=== PATIENT | male | born 1945 | race Caucasian/White ===

== ENCOUNTER 2017-10-10 14:07 | Observation (INO) ==
[2017-10-10] MEDS ORDERED: SODIUM CHLORIDE 0.9% 1,000 ML IV STA (14:58)
[2017-10-10 15:07] LABS: Basophils # 0.1 10*3/uL (0.0-0.2); Basophils % 0.6 % (0.0-0.8); Eosinophils # 0.4 10*3/uL (0.0-0.87); Eosinophils % 4.8 % (0.00-10.9); Hematocrit 41.2 VOL% (42.0-52.0); Immature Granulocytes % 0.4 %; Immature Granulocytes Absolute 0.03 #; Lymphocytes # 0.7 10*3/uL (1.4-4.0); Lymphocytes % 9.1 % (21.2-54.2); Mean Corpuscular Hemoglobin 30 PG (27-34); Mean Corpuscular Volume 87.1 FL (87-102); Mean Platelet Volume 11.1 FL (9.6-12.0); Monocytes # 0.7 10*3/uL (0.11-0.8); Monocytes % 8.2 % (1.7-12.7); Neutrophils # 6.2 10*3/uL (1.4-7.4); Neutrophils % 76.9 % (38.7-73.9); Platelet Count 88 T/CUMM (130-400); Red Blood Count 4.73 MC/CUMM (3.8-5.5); Red Cell Distribution Width 13.1 % (9.3-17.3); White Blood Count 8.1 T/CUMM (4-12)
[2017-10-10 15:20] LABS: Alanine Aminotransferase 59 U/L (16-61); Albumin 3.7 G/DL (3.4-5.0); Alkaline Phosphatase 92 U/L (45-117); Aspartate Amino Transferase 44 U/L (0-37); Blood Urea Nitrogen 20 MG/DL (7-18); Calcium 8.3 MG/DL (8.5-10.1); Glucose 160 MG/DL (74-106); Osmolality,Calculated 282.5 MOS/KG (273-304); Potassium 3.8 MMOL/L (3.5-5.1); Sodium 139 MMOL/L (136-145); Total Protein 7.5 G/DL (6.4-8.3)
[2017-10-10 15:39] LABS: PT Patient Result 59.6 SECS
[2017-10-10 15:40] LABS: Apearance,Urine CLEAR (Clear); Bacteria,Urine Occasional /HPF (Few); Bilirubin,Urine Negative (Negative); Blood, Urine Negative (Negative); Glucose,Urine (UA) Negative (Negative); Hyaline Casts,Urine 5 /LPF (0-3); Ketones,Urine Negative (Negative); Mucus,Urine Occasional /LPF (Occasional); Nitrite,Urine Negative (Negative); Protein,Urine Negative; RBC,Urine <1 /HPF (0-4); Urine Color Yellow (Yellow); Urine Specific Gravity 1.009 (1.001-1.035); WBC,Urine <1 /HPF (0-6)
[2017-10-10 15:52] LABS: Barbiturates Screen,Urine Negative (Negative); Benzodiazepines Screen,Urine Negative (Negative); Cannabinoid Screen,Urine Negative (Negative); Opiate Screen,Urine Negative (Negative); Phencyclidine Screen,Urine Negative (Negative)
[2017-10-10 17:29] LABS: Band Neutrophils 3 % (0-10); Eosinophils 2 % (0-10); Lymphocytes 7 % (20-55); Segmented Neutrophils 84 % (50-85)
[2017-10-10 17:31] LABS: Platelet Estimate Decreased; Total Cells Counted 100
[2017-10-10] MEDS ORDERED: ACETAMINOPHEN 325 MG TABLET PO PRN (19:06)
[2017-10-10] MEDS ORDERED: ONDANSETRON 4 MG/2 ML VIAL IV PRN (19:06)
[2017-10-10] MEDS ORDERED: ALBUTEROL 2.5 MG/3 ML NEB RESP TX PRN (19:30)
[2017-10-11 02:46] LABS: Basophils % 0.5 % (0.0-0.8); Eosinophils # 0.5 10*3/uL (0.0-0.87); Hematocrit 36.3 VOL% (42.0-52.0); Hemoglobin 12.7 GM/DL (14.0-18.0); Immature Granulocytes % 0.3 %; Immature Granulocytes Absolute 0.02 #; Lymphocytes # 1.1 10*3/uL (1.4-4.0); Lymphocytes % 16.4 % (21.2-54.2); Mean Corpuscular Hemoglobin 30 PG (27-34); Mean Corpuscular Volume 85.8 FL (87-102); Mean Platelet Volume 10.8 FL (9.6-12.0); Monocytes # 0.9 10*3/uL (0.11-0.8); Monocytes % 13.4 % (1.7-12.7); Neutrophils # 4.1 10*3/uL (1.4-7.4); Neutrophils % 61.4 % (38.7-73.9); Platelet Count 80 T/CUMM (130-400); Red Blood Count 4.23 MC/CUMM (3.8-5.5); Red Cell Distribution Width 13.5 % (9.3-17.3); White Blood Count 6.6 T/CUMM (4-12)
[2017-10-11 03:00] LABS: INR 1.8
[2017-10-11 03:08] LABS: Calcium 7.8 MG/DL (8.5-10.1); Osmolality,Calculated 282.4 MOS/KG (273-304); Potassium 3.4 MMOL/L (3.5-5.1); Risk Ratio 3.67; VLDL CHOLESTEROL 31.6 MG/DL
[2017-10-11 03:18] LABS: Free T4 (Free Thyroxine) 0.87 NG/DL (0.76-1.46); Thyroid Stimulating Hormone 2.01 uIU/ml (0.358-3.74)
[2017-10-11 07:59] LABS: INR 1.6; PT Patient Result 16.9 SECS
[2017-10-11] MEDS: PANTOPRAZOLE 40 MG TABLET PO SCH (09:57)
[2017-10-11] MEDS: ASPIRIN CHEW 81 MG TABLET PO SCH (09:57)
[2017-10-11] MEDS ORDERED: WARFARIN 10 MG TABLET PO ONE (10:56)
[2017-10-11] MEDS: CARVEDILOL 25 MG TABLET PO SCH ×2 (16:32→16:54)
[2017-10-11] MEDS: LISINOPRIL 20 MG TABLET PO SCH (16:32)
[2017-10-11 21:47] LABS: Apearance,Urine CLEAR (Clear); Bilirubin,Urine Negative (Negative); Blood, Urine Negative (Negative); Glucose,Urine (UA) Negative (Negative); Ketones,Urine Negative (Negative); Nitrite,Urine Negative (Negative); Protein,Urine Negative; RBC,Urine <1 /HPF (0-4); Urine Color Yellow (Yellow); Urine Specific Gravity 1.015 (1.001-1.035); WBC,Urine <1 /HPF (0-6)
[2017-10-12 04:49] LABS: INR 1.4; PT Patient Result 15.1 SECS
[2017-10-12 05:07] LABS: Calcium 8.1 MG/DL (8.5-10.1); Osmolality,Calculated 279.5 MOS/KG (273-304); Potassium 3.5 MMOL/L (3.5-5.1)
[2017-10-12 08:13] VITALS: BP 118/65
[2017-10-12] MEDS: ASPIRIN CHEW 81 MG TABLET PO SCH (08:42)
[2017-10-12] MEDS: LISINOPRIL 20 MG TABLET PO SCH (08:42)
[2017-10-12] MEDS: PANTOPRAZOLE 40 MG TABLET PO SCH (08:42)
[2017-10-12] MEDS: CARVEDILOL 25 MG TABLET PO SCH (08:42)
[2017-10-12] MEDS ORDERED: risperiDONE 1 MG TABLET PO SCH (10:12)
[2017-10-12] MEDS ORDERED: MIRTAZAPINE 30 MG TABLET PO SCH (10:12)
[2017-10-12] MEDS ORDERED: WARFARIN 7.5 MG TABLET PO SCH (18:00)
== END 2017-10-12 13:00 | disposition home or self-care (01) ==
LOC: EDUNIT# → EDBD → N.ED 14:07 → N.EDINP 14:07 → N.TELES 20:05
PROVIDERS: ADMIT Internal Medicine; ATTEND Internal Medicine

== ENCOUNTER 2020-02-08 13:01 | Inpatient (IN) ==
[2020-02-08] MEDS ORDERED: SODIUM CHLORIDE 0.9% 1,000 ML IV STA (13:20)
[2020-02-08 14:12] LABS: Basophils % 0.3 % (0.0-0.8); Eosinophils # 0.1 10*3/uL (0.0-0.87); Eosinophils % 1.2 % (0.00-10.9); Hematocrit 38.6 VOL% (42.0-52.0); Hemoglobin 12.9 GM/DL (14.0-18.0); Immature Granulocytes % 1.1 %; Immature Granulocytes Absolute 0.08 #; Lymphocytes # 0.6 10*3/uL (1.4-4.0); Lymphocytes % 7.7 % (21.2-54.2); Mean Corpuscular HGB Conc 33.4 GM/DL (32-36); Mean Corpuscular Volume 84.1 FL (87-102); Mean Platelet Volume 10.5 FL (9.6-12.0); Neutrophils % 83.7 % (38.7-73.9); Platelet Count 170 T/CUMM (130-400); Red Blood Count 4.59 MC/CUMM (3.8-5.5); Red Cell Distribution Width 13.4 % (9.3-17.3); White Blood Count 7.5 T/CUMM (4-12)
[2020-02-08 14:17] LABS: Albumin 2.5 G/DL (3.4-5.0); Bilirubin,Total 1.4 MG/DL (0.2-1.0); Calcium 8.3 MG/DL (8.5-10.1); Ferritin 1050.9 ng/ml (26-388); Osmolality,Calculated 277.8 MOS/KG (273-304); Total Protein 7.4 G/DL (6.4-8.3)
[2020-02-08 14:34] LABS: PT Patient Result 92.2 SECS (9.8-11.9); Partial Thromboplastin Time 59.9 SECS (23.9-33.8)
[2020-02-08 14:35] LABS: INR 9.7
[2020-02-08 15:26] LABS: Apearance,Urine CLEAR (Clear); Bilirubin,Urine Negative (Negative); Blood, Urine Small mg/dL (Negative); Glucose,Urine (UA) Negative (Negative); Hyaline Casts,Urine 9 /LPF (0-3); Ketones,Urine Negative (Negative); Mucus,Urine Occasional /LPF (Occasional); Nitrite,Urine Negative (Negative); Protein,Urine Negative; RBC,Urine <1 /HPF (0-4); Urine Color Yellow (Yellow); Urine Specific Gravity 1.009 (1.001-1.035)
[2020-02-08] MEDS ORDERED: LACTULOSE 20 GM/30 ML UDCUP PO PRN (15:34)
[2020-02-08] MEDS ORDERED: guaiFENesin/DM ER 600-30 MG TABLET PO PRN (15:34)
[2020-02-08] MEDS ORDERED: GLUCAGON 1 MG VIAL IM PRN (15:34)
[2020-02-08] MEDS ORDERED: NICOTINE 21 MG/24 HR PATCH TRANSDERM PRN (15:34)
[2020-02-08] MEDS ORDERED: ALBUTEROL 2.5 MG/3 ML NEB RESP TX PRN (15:34)
[2020-02-08] MEDS ORDERED: ONDANSETRON 4 MG/2 ML VIAL IV PRN (15:34)
[2020-02-08] MEDS ORDERED: DEXTROSE 50% 25 GM/50 ML VIAL IV PRN (15:34)
[2020-02-08] MEDS ORDERED: PIPERACILLIN/TAZOBACTAM 3,375 MG in SODIUM CHLORIDE 0.9% 100 ML IV SCH (16:00)
[2020-02-08] MEDS ORDERED: PHYTONADIONE 5 MG/5 ML ORAL.SYR PO ONE (16:04)
[2020-02-08] MEDS ORDERED: cefTRIAXone 1,000 MG VIAL IM STA (16:18)
[2020-02-08] MEDS ORDERED: AZITHROMYCIN INJ 500 MG in SODIUM CHLORIDE 0.9% 250 ML IV STA (16:18)
[2020-02-08] MEDS: carvediloL 25 MG TABLET PO SCH (18:36)
[2020-02-08] MEDS: INSULIN REGULAR 100 UNIT/ML SUBCUT SCH ×2 (18:36→20:56)
[2020-02-09 06:16] LABS: Basophils % 0.2 % (0.0-0.8); Eosinophils % 0.3 % (0.00-10.9); Hematocrit 36.1 VOL% (42.0-52.0); Immature Granulocytes Absolute 0.09 #; Lymphocytes # 0.7 10*3/uL (1.4-4.0); Lymphocytes % 7.2 % (21.2-54.2); Mean Corpuscular HGB Conc 33.2 GM/DL (32-36); Mean Corpuscular Volume 84.7 FL (87-102); Mean Platelet Volume 10.4 FL (9.6-12.0); Monocytes % 6.5 % (1.7-12.7); Neutrophils % 84.8 % (38.7-73.9); Platelet Count 169 T/CUMM (130-400); Red Blood Count 4.26 MC/CUMM (3.8-5.5); Red Cell Distribution Width 13.4 % (9.3-17.3)
[2020-02-09 06:21] LABS: INR 2.6; PT Patient Result 26.2 SECS (9.8-11.9)
[2020-02-09 06:35] LABS: Albumin 2.3 G/DL (3.4-5.0); Bilirubin,Total 2.4 MG/DL (0.2-1.0); Calcium 8.1 MG/DL (8.5-10.1); Osmolality,Calculated 277.7 MOS/KG (273-304); Total Protein 6.7 G/DL (6.4-8.3)
[2020-02-09] MEDS: INSULIN REGULAR 100 UNIT/ML SUBCUT SCH ×4 (07:31→20:42)
[2020-02-09] MEDS: cefTRIAXone 1,000 MG in SYRINGE 1 EACH IV SCH (09:57)
[2020-02-09] MEDS: carvediloL 25 MG TABLET PO SCH ×2 (09:57→17:09)
[2020-02-09] MEDS: AZITHROMYCIN 250 MG TABLET PO SCH (09:58)
[2020-02-09] MEDS: POTASSIUM CHLORIDE 20 MEQ PACK PO SCH (16:30)
[2020-02-09] MEDS: FUROSEMIDE 40 MG TABLET PO SCH (16:30)
[2020-02-09] MEDS: SPIRONOLACTONE 25 MG TABLET PO SCH (16:30)
[2020-02-09] MEDS: ASPIRIN CHEW 81 MG TABLET PO SCH (16:30)
[2020-02-09] MEDS: lisinopriL 20 MG TABLET PO SCH ×2 (16:30→20:45)
[2020-02-09] MEDS: ATORVASTATIN 40 MG TABLET PO SCH (16:30)
[2020-02-09] MEDS ORDERED: AZITHROMYCIN INJ 250 MG in SODIUM CHLORIDE 0.9% 250 ML IV SCH (17:00)
[2020-02-09] MEDS: MIRTAZAPINE 30 MG TABLET PO SCH (20:42)
[2020-02-09] MEDS: risperiDONE 0.25 MG TABLET PO SCH (20:42)
[2020-02-09] MEDS: SERTRALINE 100 MG TABLET PO SCH (20:42)
[2020-02-09] MEDS ORDERED: WARFARIN 7.5 MG TABLET PO SCH (21:00)
[2020-02-10 05:39] LABS: Basophils % 0.2 % (0.0-0.8); Eosinophils % 0.4 % (0.00-10.9); Hemoglobin 12.2 GM/DL (14.0-18.0); Lymphocytes # 0.6 10*3/uL (1.4-4.0); Lymphocytes % 6.5 % (21.2-54.2); Mean Corpuscular Volume 85.8 FL (87-102); Mean Platelet Volume 10.2 FL (9.6-12.0); Monocytes % 6.6 % (1.7-12.7); Neutrophils % 85.3 % (38.7-73.9); Platelet Count 165 T/CUMM (130-400); Red Blood Count 4.31 MC/CUMM (3.8-5.5); Red Cell Distribution Width 13.3 % (9.3-17.3); White Blood Count 9.9 T/CUMM (4-12)
[2020-02-10 05:43] LABS: INR 1.6; PT Patient Result 16.7 SECS (9.8-11.9)
[2020-02-10 05:52] LABS: Calcium 8.6 MG/DL (8.5-10.1); Osmolality,Calculated 277.8 MOS/KG (273-304)
[2020-02-10] MEDS: INSULIN REGULAR 100 UNIT/ML SUBCUT SCH ×4 (08:29→21:01)
[2020-02-10 08:51] LABS: ABG Base Excess -2.3 MMOL/L (-2.5-2.5); ABG HCO3 22.4 MMOL/L (20-26); ABG Oxygen Saturation 91.1 % (95-100); ABG PCO2 31.7 MM HG (35-48); ABG PH 7.432 (7.35-7.45); ABG PO2 62.5 MM HG (80-95); ABG TCO2 18.6 MMOL/L (23-27)
[2020-02-10 08:52] LABS: Allen Test Positive; Pt O2 Delivery Device Other
[2020-02-10] MEDS: lisinopriL 20 MG TABLET PO SCH ×2 (08:56→20:58)
[2020-02-10] MEDS: FUROSEMIDE 40 MG TABLET PO SCH (08:57)
[2020-02-10] MEDS: AZITHROMYCIN 250 MG TABLET PO SCH (08:57)
[2020-02-10] MEDS: SPIRONOLACTONE 25 MG TABLET PO SCH (08:57)
[2020-02-10] MEDS: CALCIUM (CARBONATE) 600 MG TABLET PO SCH (08:58)
[2020-02-10] MEDS: POTASSIUM CHLORIDE 20 MEQ PACK PO SCH (08:58)
[2020-02-10] MEDS: ASPIRIN CHEW 81 MG TABLET PO SCH (08:58)
[2020-02-10] MEDS: ATORVASTATIN 40 MG TABLET PO SCH (08:58)
[2020-02-10] MEDS: carvediloL 25 MG TABLET PO SCH ×2 (08:58→18:00)
[2020-02-10] MEDS: cefTRIAXone 1,000 MG in SYRINGE 1 EACH IV SCH (09:05)
[2020-02-10 09:29] LABS: Ferritin 1131.2 ng/ml (26-388)
[2020-02-10] MEDS: HEPARIN DRIP 25,000 UNITS/500 ML PREMIX IV SCH (12:09)
[2020-02-10] MEDS: risperiDONE 0.25 MG TABLET PO SCH (20:58)
[2020-02-10] MEDS: SERTRALINE 100 MG TABLET PO SCH (20:58)
[2020-02-10] MEDS: MIRTAZAPINE 30 MG TABLET PO SCH (20:58)
[2020-02-10] MEDS ORDERED: WARFARIN 10 MG TABLET PO SCH (21:00)
[2020-02-11 04:23] LABS: Basophils % 0.2 % (0.0-0.8); Eosinophils # 0.1 10*3/uL (0.0-0.87); Eosinophils % 0.7 % (0.00-10.9); Hematocrit 34.2 VOL% (42.0-52.0); Hemoglobin 11.4 GM/DL (14.0-18.0); Immature Granulocytes % 1.4 %; Immature Granulocytes Absolute 0.15 #; Lymphocytes # 0.6 10*3/uL (1.4-4.0); Lymphocytes % 5.8 % (21.2-54.2); Mean Corpuscular HGB Conc 33.3 GM/DL (32-36); Mean Corpuscular Volume 84.4 FL (87-102); Monocytes % 6.8 % (1.7-12.7); Neutrophils % 85.1 % (38.7-73.9); Platelet Count 153 T/CUMM (130-400); Red Blood Count 4.05 MC/CUMM (3.8-5.5); Red Cell Distribution Width 13.4 % (9.3-17.3); White Blood Count 10.4 T/CUMM (4-12)
[2020-02-11 04:35] LABS: PT Patient Result 20.3 SECS (9.8-11.9)
[2020-02-11 04:55] LABS: Albumin 2.1 G/DL (3.4-5.0); Bilirubin,Total 2.7 MG/DL (0.2-1.0); Total Protein 6.6 G/DL (6.4-8.3)
[2020-02-11 04:57] LABS: Ferritin 1183.7 ng/ml (26-388)
[2020-02-11 05:09] LABS: ABG Base Excess -0.8 MMOL/L (-2.5-2.5); ABG HCO3 23.6 MMOL/L (20-26); ABG PCO2 32.3 MM HG (35-48); ABG PO2 57.6 MM HG (80-95); ABG TCO2 19.9 MMOL/L (23-27); Allen Test Positive; Pt O2 Delivery Device Other
[2020-02-11] MEDS: INSULIN REGULAR 100 UNIT/ML SUBCUT SCH ×4 (08:01→22:24)
[2020-02-11] MEDS: CALCIUM (CARBONATE) 600 MG TABLET PO SCH (08:42)
[2020-02-11] MEDS: AZITHROMYCIN 250 MG TABLET PO SCH (08:42)
[2020-02-11] MEDS: POTASSIUM CHLORIDE 20 MEQ PACK PO SCH (08:42)
[2020-02-11] MEDS: ATORVASTATIN 40 MG TABLET PO SCH (08:42)
[2020-02-11] MEDS: cefTRIAXone 1,000 MG in SYRINGE 1 EACH IV SCH (08:42)
[2020-02-11] MEDS: lisinopriL 20 MG TABLET PO SCH ×2 (08:42→21:24)
[2020-02-11] MEDS: SPIRONOLACTONE 25 MG TABLET PO SCH (08:42)
[2020-02-11] MEDS: ASPIRIN CHEW 81 MG TABLET PO SCH (08:42)
[2020-02-11] MEDS: carvediloL 25 MG TABLET PO SCH ×2 (08:42→17:16)
[2020-02-11] MEDS: FUROSEMIDE 40 MG TABLET PO SCH (08:42)
[2020-02-11] MEDS: HEPARIN DRIP 25,000 UNITS/500 ML PREMIX IV SCH (11:45)
[2020-02-11] MEDS: MIRTAZAPINE 30 MG TABLET PO SCH (21:24)
[2020-02-11] MEDS: SERTRALINE 100 MG TABLET PO SCH (21:25)
[2020-02-11] MEDS: risperiDONE 0.25 MG TABLET PO SCH (21:25)
[2020-02-12] MEDS: ACETAMINOPHEN/CODEINE 120-12 MG/5 ML 12.5 ML UDCUP PO PRN ×2 (02:00→23:30)
[2020-02-12] MEDS: HEPARIN DRIP 25,000 UNITS/500 ML PREMIX IV SCH ×3 (02:32→23:03)
[2020-02-12 05:05] LABS: ABG Base Excess -0.8 MMOL/L (-2.5-2.5); ABG HCO3 23.3 MMOL/L (20-26); ABG Oxygen Saturation 76.1 % (95-100); ABG PH 7.417 (7.35-7.45); ABG TCO2 20.6 MMOL/L (23-27); Allen Test Positive; Pt O2 Delivery Device Other
[2020-02-12 05:26] LABS: Basophils % 0.1 % (0.0-0.8); Eosinophils # 0.1 10*3/uL (0.0-0.87); Eosinophils % 1.2 % (0.00-10.9); Hematocrit 34.8 VOL% (42.0-52.0); Hemoglobin 11.3 GM/DL (14.0-18.0); Immature Granulocytes % 1.4 %; Immature Granulocytes Absolute 0.16 #; Lymphocytes # 0.7 10*3/uL (1.4-4.0); Lymphocytes % 6.1 % (21.2-54.2); Mean Corpuscular HGB Conc 32.5 GM/DL (32-36); Mean Corpuscular Volume 86.6 FL (87-102); Mean Platelet Volume 10.2 FL (9.6-12.0); Monocytes % 5.3 % (1.7-12.7); Neutrophils % 85.9 % (38.7-73.9); Platelet Count 179 T/CUMM (130-400); Red Blood Count 4.02 MC/CUMM (3.8-5.5); Red Cell Distribution Width 13.6 % (9.3-17.3); White Blood Count 11.2 T/CUMM (4-12)
[2020-02-12 05:55] LABS: Albumin 1.9 G/DL (3.4-5.0); Bilirubin,Total 1.6 MG/DL (0.2-1.0); Calcium 8.1 MG/DL (8.5-10.1); Osmolality,Calculated 279.8 MOS/KG (273-304); Total Protein 6.6 G/DL (6.4-8.3)
[2020-02-12 05:59] LABS: INR 2.2
[2020-02-12 06:00] LABS: PT Patient Result 22.4 SECS (9.8-11.9)
[2020-02-12] MEDS: INSULIN REGULAR 100 UNIT/ML SUBCUT SCH ×4 (08:38→20:55)
[2020-02-12] MEDS: cefTRIAXone 1,000 MG in SYRINGE 1 EACH IV SCH (09:51)
[2020-02-12] MEDS: CALCIUM (CARBONATE) 600 MG TABLET PO SCH (09:57)
[2020-02-12] MEDS: FUROSEMIDE 40 MG TABLET PO SCH (09:57)
[2020-02-12] MEDS: carvediloL 25 MG TABLET PO SCH ×2 (09:57→16:49)
[2020-02-12] MEDS: SPIRONOLACTONE 25 MG TABLET PO SCH (09:57)
[2020-02-12] MEDS: ATORVASTATIN 40 MG TABLET PO SCH (09:57)
[2020-02-12] MEDS: ASPIRIN CHEW 81 MG TABLET PO SCH (09:57)
[2020-02-12] MEDS: DEXAMETHASONE 4 MG/1 ML VIAL IV SCH (09:57)
[2020-02-12] MEDS: lisinopriL 20 MG TABLET PO SCH ×2 (09:58→20:32)
[2020-02-12] MEDS: AZITHROMYCIN 250 MG TABLET PO SCH (09:58)
[2020-02-12] MEDS: POTASSIUM CHLORIDE 20 MEQ PACK PO SCH (09:58)
[2020-02-12] MEDS: FUROSEMIDE 40 MG/4 ML VIAL IV SCH (12:58)
[2020-02-12] MEDS: PANTOPRAZOLE 40 MG VIAL IV SCH (14:42)
[2020-02-12] MEDS ORDERED: REMDESIVIR 200 MG in SODIUM CHLORIDE 0.9% 210 ML IV ONE (17:00)
[2020-02-12] MEDS: risperiDONE 0.25 MG TABLET PO SCH (20:32)
[2020-02-12] MEDS: SERTRALINE 100 MG TABLET PO SCH (20:32)
[2020-02-12] MEDS: MIRTAZAPINE 30 MG TABLET PO SCH (20:32)
[2020-02-13 05:08] LABS: ABG Base Excess -0.8 MMOL/L (-2.5-2.5); ABG Oxygen Saturation 77.9 % (95-100); ABG PCO2 35.3 MM HG (35-48); ABG PH 7.431 (7.35-7.45); ABG PO2 45.1 MM HG (80-95); Allen Test Positive; Pt O2 Delivery Device Other
[2020-02-13 05:19] LABS: Basophils % 0.2 % (0.0-0.8); Eosinophils % 0.2 % (0.00-10.9); Hematocrit 35.2 VOL% (42.0-52.0); Immature Granulocytes Absolute 0.22 #; Lymphocytes # 0.6 10*3/uL (1.4-4.0); Lymphocytes % 5.6 % (21.2-54.2); Mean Corpuscular HGB Conc 34.1 GM/DL (32-36); Mean Corpuscular Volume 82.8 FL (87-102); Mean Platelet Volume 10.4 FL (9.6-12.0); Monocytes % 5.5 % (1.7-12.7); Neutrophils % 86.5 % (38.7-73.9); Platelet Count 177 T/CUMM (130-400); Red Blood Count 4.25 MC/CUMM (3.8-5.5); Red Cell Distribution Width 13.6 % (9.3-17.3); White Blood Count 11.1 T/CUMM (4-12)
[2020-02-13 05:57] LABS: Albumin 1.8 G/DL (3.4-5.0); Bilirubin,Total 1.3 MG/DL (0.2-1.0); Calcium 8.2 MG/DL (8.5-10.1); Osmolality,Calculated 283.7 MOS/KG (273-304); Total Protein 6.7 G/DL (6.4-8.3)
[2020-02-13 07:06] LABS: INR 2.6
[2020-02-13 07:09] LABS: PT Patient Result 26.8 SECS (9.8-11.9)
[2020-02-13] MEDS: CALCIUM (CARBONATE) 600 MG TABLET PO SCH (08:25)
[2020-02-13] MEDS: lisinopriL 20 MG TABLET PO SCH (08:25)
[2020-02-13] MEDS: SPIRONOLACTONE 25 MG TABLET PO SCH (08:25)
[2020-02-13] MEDS: ATORVASTATIN 40 MG TABLET PO SCH (08:25)
[2020-02-13] MEDS: POTASSIUM CHLORIDE 20 MEQ PACK PO SCH (08:25)
[2020-02-13] MEDS: carvediloL 25 MG TABLET PO SCH ×2 (08:25→16:24)
[2020-02-13] MEDS: ASPIRIN CHEW 81 MG TABLET PO SCH (08:25)
[2020-02-13] MEDS: DEXAMETHASONE 4 MG/1 ML VIAL IV SCH (08:26)
[2020-02-13] MEDS: PANTOPRAZOLE 40 MG VIAL IV SCH (08:26)
[2020-02-13] MEDS: cefTRIAXone 1,000 MG in SYRINGE 1 EACH IV SCH (08:26)
[2020-02-13] MEDS: FUROSEMIDE 40 MG/4 ML VIAL IV SCH (08:26)
[2020-02-13] MEDS: INSULIN REGULAR 100 UNIT/ML SUBCUT SCH ×3 (09:19→17:59)
[2020-02-13] MEDS: POTASSIUM CHLORIDE 20 MEQ TABLET PO PRN ×2 (09:19→18:54)
[2020-02-13] MEDS: HEPARIN DRIP 25,000 UNITS/500 ML PREMIX IV SCH (11:45)
[2020-02-13] MEDS ORDERED: SUCCINYLCHOLINE 200 MG/10 ML VIAL ONE (13:10)
[2020-02-13] MEDS ORDERED: MIDAZOLAM 10 MG/2 ML VIAL ONE (13:10)
[2020-02-13] MEDS ORDERED: MIDAZOLAM 2 MG/2 ML VIAL IV ONE ×2 (13:20→13:22)
[2020-02-13] MEDS ORDERED: SUCCINYLCHOLINE 200 MG/10 ML VIAL IV ONE (13:24)
[2020-02-13] MEDS ORDERED: NOREPINEPHRINE 4 MG/4 ML VIAL IV ONE (14:15)
[2020-02-13] MEDS: NOREPINEPHRINE 8 MG in SODIUM CHLORIDE 0.9% 242 ML IV PRN ×2 (14:17→20:15)
[2020-02-13 14:21] LABS: ABG Base Excess -1.3 MMOL/L (-2.5-2.5); ABG HCO3 23.1 MMOL/L (20-26); ABG Oxygen Saturation 85.4 % (95-100); ABG PCO2 48.3 MM HG (35-48); ABG PH 7.327 (7.35-7.45); ABG PO2 60.5 MM HG (80-95); ABG TCO2 22.5 MMOL/L (23-27); Allen Test Positive; Pt O2 Delivery Device Ventilator
[2020-02-13] MEDS ORDERED: VECURONIUM 10 MG VIAL IV PRN (15:27)
[2020-02-13 16:22] LABS: ABG HCO3 22.6 MMOL/L (20-26); ABG Oxygen Saturation 92.2 % (95-100); ABG PCO2 54.5 MM HG (35-48); ABG PH 7.283 (7.35-7.45); ABG PO2 78.8 MM HG (80-95); ABG TCO2 22.9 MMOL/L (23-27); Allen Test Positive; Pt O2 Delivery Device Ventilator
[2020-02-13] MEDS: REMDESIVIR 100 MG in SODIUM CHLORIDE 0.9% 230 ML IV SCH (17:45)
[2020-02-13] MEDS: risperiDONE 0.25 MG TABLET PO SCH (21:38)
[2020-02-13] MEDS: SERTRALINE 100 MG TABLET PO SCH (21:38)
[2020-02-13] MEDS: MIRTAZAPINE 30 MG TABLET PO SCH (21:38)
[2020-02-14] MEDS: INSULIN REGULAR 100 UNIT/ML SUBCUT SCH ×4 (00:14→17:27)
[2020-02-14] MEDS: NOREPINEPHRINE 8 MG in SODIUM CHLORIDE 0.9% 242 ML IV PRN ×4 (01:35→20:26)
[2020-02-14] MEDS ORDERED: LACTATED RINGERS 1,000 ML IV ONE (03:09)
[2020-02-14 04:22] LABS: Basophils # 0.1 10*3/uL (0.0-0.2); Basophils % 0.4 % (0.0-0.8); Eosinophils % 0.1 % (0.00-10.9); Hematocrit 41.3 VOL% (42.0-52.0); Hemoglobin 12.9 GM/DL (14.0-18.0); Immature Granulocytes Absolute 1.58 #; Lymphocytes # 1.9 10*3/uL (1.4-4.0); Mean Corpuscular HGB Conc 31.2 GM/DL (32-36); Mean Corpuscular Volume 89.6 FL (87-102); Mean Platelet Volume 10.9 FL (9.6-12.0); Monocytes % 5.1 % (1.7-12.7); NRBC # 0.02 10*3/uL; Neutrophils % 83.4 % (38.7-73.9); Platelet Count 330 T/CUMM (130-400); Red Blood Count 4.61 MC/CUMM (3.8-5.5); Red Cell Distribution Width 14.6 % (9.3-17.3); White Blood Count 31.6 T/CUMM (4-12)
[2020-02-14 04:36] LABS: ABG Base Excess -4.1 MMOL/L (-2.5-2.5); ABG Oxygen Saturation 98.6 % (95-100); ABG PCO2 57.3 MM HG (35-48); ABG PO2 157.1 MM HG (80-95); ABG TCO2 25.8 MMOL/L (23-27); Allen Test Positive; Pt O2 Delivery Device Ventilator
[2020-02-14 05:00] LABS: Band Neutrophils 3 % (0-10); Burr Cells Slight; Lymphocytes 3 % (20-55); Ovalocytes Slight; Platelet Estimate Adequate; Segmented Neutrophils 91 % (50-85); Total Cells Counted 100
[2020-02-14 05:07] LABS: Albumin 1.9 G/DL (3.4-5.0); Calcium 7.8 MG/DL (8.5-10.1); Total Protein 6.6 G/DL (6.4-8.3)
[2020-02-14] MEDS ORDERED: SODIUM POLYSTYRENE SULFATE 15 GM/60 ML BOTTLE PO ONE (06:15)
[2020-02-14] MEDS: HEPARIN DRIP 25,000 UNITS/500 ML PREMIX IV SCH ×2 (06:42→11:49)
[2020-02-14] MEDS: ASPIRIN CHEW 81 MG TABLET PO SCH (08:09)
[2020-02-14] MEDS: CALCIUM (CARBONATE) 600 MG TABLET PO SCH (08:09)
[2020-02-14] MEDS: ATORVASTATIN 40 MG TABLET PO SCH (08:09)
[2020-02-14] MEDS: cefTRIAXone 1,000 MG in SYRINGE 1 EACH IV SCH (08:10)
[2020-02-14] MEDS: SPIRONOLACTONE 25 MG TABLET PO SCH (08:12)
[2020-02-14] MEDS: FUROSEMIDE 40 MG/4 ML VIAL IV SCH (08:20)
[2020-02-14] MEDS: DEXAMETHASONE 4 MG/1 ML VIAL IV SCH (08:23)
[2020-02-14] MEDS: PANTOPRAZOLE 40 MG VIAL IV SCH (08:26)
[2020-02-14 10:52] LABS: Amorphous Crystals,Urine Occasional /HPF (Few); Apearance,Urine CLOUDY (Clear); Bilirubin,Urine Negative (Negative); Blood, Urine Large mg/dL (Negative); Glucose,Urine (UA) Negative (Negative); Hyaline Casts,Urine 14 /LPF (0-3); Ketones,Urine Negative (Negative); Mucus,Urine Few /LPF (Occasional); Nitrite,Urine Negative (Negative); Protein,Urine Negative; RBC,Urine 210 /HPF (0-4); Sperm,Urine Occasional /HPF (Negative); Urine Color Yellow (Yellow); WBC,Urine 1 /HPF (0-6)
[2020-02-14] MEDS ORDERED: SODIUM CHLORIDE 0.9% 1,000 ML IV PRN (11:50)
[2020-02-14] MEDS: REMDESIVIR 100 MG in SODIUM CHLORIDE 0.9% 230 ML IV SCH (16:44)
[2020-02-14] MEDS: SERTRALINE 100 MG TABLET PO SCH (20:12)
[2020-02-14] MEDS: risperiDONE 0.25 MG TABLET PO SCH (20:12)
[2020-02-14] MEDS: MIRTAZAPINE 30 MG TABLET PO SCH (20:12)
[2020-02-15] MEDS: HEPARIN DRIP 25,000 UNITS/500 ML PREMIX IV SCH ×4 (00:42→18:31)
[2020-02-15] MEDS: INSULIN REGULAR 100 UNIT/ML SUBCUT SCH ×4 (02:45→18:05)
[2020-02-15 04:14] LABS: ABG Base Excess -0.4 MMOL/L (-2.5-2.5); ABG HCO3 25.6 MMOL/L (20-26); ABG Oxygen Saturation 96.1 % (95-100); ABG PCO2 47.5 MM HG (35-48); ABG PO2 89.1 MM HG (80-95); ABG TCO2 27.1 MMOL/L (23-27); Allen Test Positive; Pt O2 Delivery Device Ventilator
[2020-02-15 06:00] LABS: Basophils % 0.2 % (0.0-0.8); Eosinophils # 0.2 10*3/uL (0.0-0.87); Eosinophils % 1.2 % (0.00-10.9); Hematocrit 37.2 VOL% (42.0-52.0); Lymphocytes # 1.2 10*3/uL (1.4-4.0); Lymphocytes % 8.5 % (21.2-54.2); Mean Corpuscular HGB Conc 32.3 GM/DL (32-36); Mean Corpuscular Volume 88.4 FL (87-102); Mean Platelet Volume 10.2 FL (9.6-12.0); Monocytes % 7.2 % (1.7-12.7); Neutrophils % 80.9 % (38.7-73.9); Platelet Count 219 T/CUMM (130-400); Red Blood Count 4.21 MC/CUMM (3.8-5.5); Red Cell Distribution Width 14.7 % (9.3-17.3); White Blood Count 14.7 T/CUMM (4-12)
[2020-02-15 06:18] LABS: Albumin 1.7 G/DL (3.4-5.0); Bilirubin,Direct 0.97 MG/DL (0.0-0.20); Bilirubin,Indirect 0.8 MG/DL (0.0-1.0); Bilirubin,Total 1.8 MG/DL (0.2-1.0); Calcium 7.7 MG/DL (8.5-10.1); Osmolality,Calculated 296.3 MOS/KG (273-304); Total Protein 6.7 G/DL (6.4-8.3)
[2020-02-15] MEDS: NOREPINEPHRINE 8 MG in SODIUM CHLORIDE 0.9% 242 ML IV PRN (07:10)
[2020-02-15] MEDS: CALCIUM (CARBONATE) 600 MG TABLET PO SCH (08:10)
[2020-02-15] MEDS: ATORVASTATIN 40 MG TABLET PO SCH (08:10)
[2020-02-15] MEDS: ASPIRIN CHEW 81 MG TABLET PO SCH (08:10)
[2020-02-15] MEDS: DEXAMETHASONE 4 MG/1 ML VIAL IV SCH (08:22)
[2020-02-15] MEDS: PANTOPRAZOLE 40 MG VIAL IV SCH (09:17)
[2020-02-15] MEDS: cefTRIAXone 1,000 MG in SYRINGE 1 EACH IV SCH (09:17)
[2020-02-15] MEDS ORDERED: DIGOXIN 0.5 MG/2 ML AMP IV ONE ×2 (09:20→10:21)
[2020-02-15] MEDS: REMDESIVIR 100 MG in SODIUM CHLORIDE 0.9% 230 ML IV SCH (16:03)
[2020-02-15] MEDS: ACETAMINOPHEN 325 MG TABLET PO PRN (16:38)
[2020-02-15] MEDS: MIRTAZAPINE 30 MG TABLET PO SCH (21:00)
[2020-02-15] MEDS: SERTRALINE 100 MG TABLET PO SCH (21:00)
[2020-02-15] MEDS: risperiDONE 0.25 MG TABLET PO SCH (21:00)
[2020-02-15 21:59] VITALS: BP 116/71
[2020-02-16] MEDS: INSULIN REGULAR 100 UNIT/ML SUBCUT SCH ×4 (00:54→17:41)
[2020-02-16] MEDS: ACETAMINOPHEN 325 MG TABLET PO PRN ×4 (01:15→21:05)
[2020-02-16 03:05] LABS: ABG Base Excess 0.1 MMOL/L (-2.5-2.5); ABG HCO3 28.3 MMOL/L (20-26); ABG Oxygen Saturation 98.3 % (95-100); ABG PO2 131.9 MM HG (80-95); ABG TCO2 30.2 MMOL/L (23-27); Allen Test Positive; Pt O2 Delivery Device Ventilator
[2020-02-16 04:31] LABS: Basophils % 0.1 % (0.0-0.8); Eosinophils # 0.1 10*3/uL (0.0-0.87); Eosinophils % 0.4 % (0.00-10.9); Hemoglobin 12.4 GM/DL (14.0-18.0); Immature Granulocytes % 1.2 %; Immature Granulocytes Absolute 0.18 #; Lymphocytes # 0.9 10*3/uL (1.4-4.0); Lymphocytes % 5.7 % (21.2-54.2); Mean Corpuscular HGB Conc 30.2 GM/DL (32-36); Mean Corpuscular Volume 91.5 FL (87-102); Mean Platelet Volume 10.8 FL (9.6-12.0); Monocytes % 6.9 % (1.7-12.7); Neutrophils % 85.7 % (38.7-73.9); Platelet Count 178 T/CUMM (130-400); Red Blood Count 4.48 MC/CUMM (3.8-5.5); White Blood Count 15.6 T/CUMM (4-12)
[2020-02-16 04:39] LABS: INR 1.9; PT Patient Result 19.8 SECS (9.8-11.9)
[2020-02-16 04:54] LABS: Calcium 8.5 MG/DL (8.5-10.1); Osmolality,Calculated 301.1 MOS/KG (273-304)
[2020-02-16] MEDS: cefTRIAXone 1,000 MG in SYRINGE 1 EACH IV SCH (08:08)
[2020-02-16] MEDS: ATORVASTATIN 40 MG TABLET PO SCH (08:08)
[2020-02-16] MEDS: ASPIRIN CHEW 81 MG TABLET PO SCH (08:09)
[2020-02-16] MEDS: CALCIUM (CARBONATE) 600 MG TABLET PO SCH (08:09)
[2020-02-16] MEDS: DEXAMETHASONE 4 MG/1 ML VIAL IV SCH (08:13)
[2020-02-16] MEDS: PANTOPRAZOLE 40 MG VIAL IV SCH (08:20)
[2020-02-16] MEDS ORDERED: AMIODARONE INJ 150 MG in DEXTROSE 5% 100 ML IV ONE (11:10)
[2020-02-16] MEDS ORDERED: AMIODARONE INJ 450 MG in DEXTROSE 5% 241 ML IV SCH (11:30)
[2020-02-16] MEDS ORDERED: DIGOXIN 0.25 MG TABLET PO SCH (13:00)
[2020-02-16] MEDS: HEPARIN DRIP 25,000 UNITS/500 ML PREMIX IV SCH ×2 (13:07→15:12)
[2020-02-16] MEDS: METOPROLOL TARTRATE 50 MG TABLET PO SCH ×2 (15:05→20:04)
[2020-02-16] MEDS: REMDESIVIR 100 MG in SODIUM CHLORIDE 0.9% 230 ML IV SCH (17:20)
[2020-02-16] MEDS: PIPERACILLIN/TAZOBACTAM 3,375 MG in SODIUM CHLORIDE 0.9% 100 ML IV SCH (18:53)
[2020-02-16] MEDS: NOREPINEPHRINE 8 MG in SODIUM CHLORIDE 0.9% 242 ML IV PRN (20:05)
[2020-02-16] MEDS: MIRTAZAPINE 30 MG TABLET PO SCH (20:05)
[2020-02-16] MEDS: SERTRALINE 100 MG TABLET PO SCH (20:05)
[2020-02-16] MEDS: risperiDONE 0.25 MG TABLET PO SCH (20:05)
[2020-02-16] MEDS: AMIODARONE INJ 450 MG in DEXTROSE 5% 241 ML IV SCH (23:06)
[2020-02-17] MEDS: INSULIN REGULAR 100 UNIT/ML SUBCUT SCH ×4 (00:27→18:49)
[2020-02-17] MEDS: PIPERACILLIN/TAZOBACTAM 3,375 MG in SODIUM CHLORIDE 0.9% 100 ML IV SCH ×3 (03:55→21:15)
[2020-02-17 04:09] LABS: Basophils % 0.2 % (0.0-0.8); Calcium 8.2 MG/DL (8.5-10.1); Hematocrit 38.9 VOL% (42.0-52.0); Hemoglobin 11.8 GM/DL (14.0-18.0); Immature Granulocytes % 1.8 %; Immature Granulocytes Absolute 0.46 #; Lymphocytes # 1.5 10*3/uL (1.4-4.0); Lymphocytes % 5.8 % (21.2-54.2); Mean Corpuscular HGB Conc 30.3 GM/DL (32-36); Mean Corpuscular Volume 90.9 FL (87-102); Monocytes % 7.6 % (1.7-12.7); Neutrophils % 84.6 % (38.7-73.9); Osmolality,Calculated 306.3 MOS/KG (273-304); Platelet Count 240 T/CUMM (130-400); Red Blood Count 4.28 MC/CUMM (3.8-5.5); Red Cell Distribution Width 15.4 % (9.3-17.3); White Blood Count 25.7 T/CUMM (4-12)
[2020-02-17 04:30] LABS: Band Neutrophils 1 % (0-10); Hypochromasia 1+; Lymphocytes 8 % (20-55); Ovalocytes Slight; Platelet Estimate Adequate; Segmented Neutrophils 88 % (50-85); Total Cells Counted 100
[2020-02-17 04:52] LABS: INR 1.3; PT Patient Result 14.2 SECS (9.8-11.9)
[2020-02-17 05:12] LABS: ABG Base Excess -1.5 MMOL/L (-2.5-2.5); ABG HCO3 23.2 MMOL/L (20-26); ABG Oxygen Saturation 98.3 % (95-100); ABG PCO2 64.2 MM HG (35-48); Allen Test Positive; Pt O2 Delivery Device Ventilator
[2020-02-17] MEDS ORDERED: IBUPROFEN 100 MG/5 ML UDCUP PO PRN (08:10)
[2020-02-17] MEDS: CALCIUM (CARBONATE) 600 MG TABLET PO SCH (08:28)
[2020-02-17] MEDS: ATORVASTATIN 40 MG TABLET PO SCH (08:28)
[2020-02-17] MEDS: PANTOPRAZOLE 40 MG VIAL IV SCH (08:28)
[2020-02-17] MEDS: METOPROLOL TARTRATE 50 MG TABLET PO SCH ×2 (08:29→20:10)
[2020-02-17] MEDS: ASPIRIN CHEW 81 MG TABLET PO SCH (08:29)
[2020-02-17] MEDS: DEXAMETHASONE 4 MG/1 ML VIAL IV SCH (08:29)
[2020-02-17] MEDS: SODIUM CHLORIDE 0.9% 1,000 ML IV SCH (11:00)
[2020-02-17] MEDS: HEPARIN DRIP 25,000 UNITS/500 ML PREMIX IV SCH (11:21)
[2020-02-17] MEDS: NOREPINEPHRINE 8 MG in SODIUM CHLORIDE 0.9% 242 ML IV PRN ×2 (12:30→18:50)
[2020-02-17] MEDS: ACETAMINOPHEN 325 MG TABLET PO PRN ×3 (13:02→23:18)
[2020-02-17] MEDS ORDERED: VANCOMYCIN INJ 2,000 MG in SODIUM CHLORIDE 0.9% 500 ML IV PRN (14:56)
[2020-02-17] MEDS: ALBUMIN 25% 25 GM in PREMIX 1 EACH IV SCH ×2 (15:24→20:12)
[2020-02-17] MEDS: AMIODARONE INJ 450 MG in DEXTROSE 5% 241 ML IV SCH (16:22)
[2020-02-17] MEDS ORDERED: VANCOMYCIN INJ 2,000 MG in SODIUM CHLORIDE 0.9% 500 ML IV ONE (17:00)
[2020-02-17] MEDS: MIRTAZAPINE 30 MG TABLET PO SCH (20:10)
[2020-02-17] MEDS: SERTRALINE 100 MG TABLET PO SCH (20:11)
[2020-02-17] MEDS: risperiDONE 0.25 MG TABLET PO SCH (20:11)
[2020-02-18] MEDS: NOREPINEPHRINE 8 MG in SODIUM CHLORIDE 0.9% 242 ML IV PRN ×6 (00:11→22:30)
[2020-02-18] MEDS: AMIODARONE INJ 450 MG in DEXTROSE 5% 241 ML IV SCH ×2 (01:35→08:26)
[2020-02-18] MEDS: INSULIN REGULAR 100 UNIT/ML SUBCUT SCH ×4 (01:37→19:15)
[2020-02-18] MEDS: SODIUM CHLORIDE 0.9% 1,000 ML IV SCH ×3 (03:59→15:05)
[2020-02-18 04:04] LABS: Basophils % 0.1 % (0.0-0.8); Eosinophils % 0.1 % (0.00-10.9); Hematocrit 34.7 VOL% (42.0-52.0); Hemoglobin 10.7 GM/DL (14.0-18.0); Immature Granulocytes Absolute 0.22 #; Lymphocytes # 1.7 10*3/uL (1.4-4.0); Lymphocytes % 8.1 % (21.2-54.2); Mean Corpuscular HGB Conc 30.8 GM/DL (32-36); Mean Corpuscular Volume 91.6 FL (87-102); Mean Platelet Volume 11.3 FL (9.6-12.0); Monocytes % 6.8 % (1.7-12.7); Neutrophils % 83.9 % (38.7-73.9); Platelet Count 184 T/CUMM (130-400); Red Blood Count 3.79 MC/CUMM (3.8-5.5); Red Cell Distribution Width 15.8 % (9.3-17.3); White Blood Count 21.3 T/CUMM (4-12)
[2020-02-18] MEDS: ALBUMIN 25% 25 GM in PREMIX 1 EACH IV SCH ×3 (04:04→20:00)
[2020-02-18 04:22] LABS: INR 1.3; PT Patient Result 13.5 SECS (9.8-11.9)
[2020-02-18 04:44] LABS: Calcium 7.8 MG/DL (8.5-10.1); Osmolality,Calculated 316.5 MOS/KG (273-304)
[2020-02-18 05:01] LABS: ABG Base Excess -5.8 MMOL/L (-2.5-2.5); ABG HCO3 21.7 MMOL/L (20-26); ABG Oxygen Saturation 98.7 % (95-100); ABG PCO2 52.5 MM HG (35-48); ABG PH 7.235 (7.35-7.45); ABG PO2 158.7 MM HG (80-95); ABG TCO2 23.4 MMOL/L (23-27)
[2020-02-18 05:02] LABS: Allen Test Positive; Pt O2 Delivery Device Ventilator
[2020-02-18] MEDS: PIPERACILLIN/TAZOBACTAM 3,375 MG in SODIUM CHLORIDE 0.9% 100 ML IV SCH ×3 (05:20→21:20)
[2020-02-18 06:58] LABS: Ovalocytes Few
[2020-02-18 06:59] LABS: Burr Cells Few; Platelet Estimate Adequate; Polychromasia Slight; Schistocytes Slight
[2020-02-18] MEDS: CALCIUM (CARBONATE) 600 MG TABLET PO SCH (08:22)
[2020-02-18] MEDS: METOPROLOL TARTRATE 50 MG TABLET PO SCH (08:22)
[2020-02-18] MEDS: ATORVASTATIN 40 MG TABLET PO SCH (08:22)
[2020-02-18] MEDS: PANTOPRAZOLE 40 MG VIAL IV SCH ×2 (08:22→20:09)
[2020-02-18] MEDS: ASPIRIN CHEW 81 MG TABLET PO SCH (08:23)
[2020-02-18] MEDS: DEXAMETHASONE 4 MG/1 ML VIAL IV SCH (08:34)
[2020-02-18] MEDS: HEPARIN DRIP 25,000 UNITS/500 ML PREMIX IV SCH (12:56)
[2020-02-18] MEDS ORDERED: SODIUM CHLORIDE 0.9% 1,000 ML IV ONE (13:49)
[2020-02-18 16:13] LABS: Hematocrit 35.1 VOL% (42.0-52.0); Hemoglobin 10.4 GM/DL (14.0-18.0)
[2020-02-18] MEDS: SERTRALINE 100 MG TABLET PO SCH (20:06)
[2020-02-18] MEDS: MIRTAZAPINE 30 MG TABLET PO SCH (20:06)
[2020-02-18] MEDS: risperiDONE 0.25 MG TABLET PO SCH (20:06)
[2020-02-18] MEDS: METOPROLOL TARTRATE 25 MG TABLET PO SCH (20:09)
[2020-02-18 23:07] LABS: Hematocrit 31.8 VOL% (42.0-52.0); Hemoglobin 9.3 GM/DL (14.0-18.0)
[2020-02-19] MEDS: INSULIN REGULAR 100 UNIT/ML SUBCUT SCH ×4 (01:16→17:52)
[2020-02-19] MEDS: PHENYLEPHRINE DRIP 40 MG/250 ML PREMIX IV PRN ×3 (01:26→20:31)
[2020-02-19] MEDS: NOREPINEPHRINE 8 MG in SODIUM CHLORIDE 0.9% 242 ML IV PRN ×4 (02:49→14:37)
[2020-02-19 04:40] LABS: Basophils % 0.1 % (0.0-0.8); Eosinophils % 0.1 % (0.00-10.9); Hematocrit 31.6 VOL% (42.0-52.0); Hemoglobin 9.5 GM/DL (14.0-18.0); Immature Granulocytes % 1.7 %; Immature Granulocytes Absolute 0.34 #; Lymphocytes # 1.4 10*3/uL (1.4-4.0); Lymphocytes % 6.9 % (21.2-54.2); Mean Corpuscular HGB Conc 30.1 GM/DL (32-36); Mean Corpuscular Volume 93.8 FL (87-102); Mean Platelet Volume 11.7 FL (9.6-12.0); Monocytes % 6.3 % (1.7-12.7); NRBC # 0.02 10*3/uL; Neutrophils % 84.9 % (38.7-73.9); Platelet Count 140 T/CUMM (130-400); Red Blood Count 3.37 MC/CUMM (3.8-5.5); Red Cell Distribution Width 16.3 % (9.3-17.3); White Blood Count 20.2 T/CUMM (4-12)
[2020-02-19 04:48] LABS: ABG Base Excess -9.6 MMOL/L (-2.5-2.5); ABG HCO3 19.6 MMOL/L (20-26); ABG Oxygen Saturation 97.1 % (95-100); ABG PCO2 59.7 MM HG (35-48); ABG PO2 107.6 MM HG (80-95); ABG TCO2 21.4 MMOL/L (23-27); Allen Test Positive; Pt O2 Delivery Device Ventilator
[2020-02-19 04:49] LABS: ABG PH 7.134 (7.35-7.45)
[2020-02-19 05:02] LABS: Calcium 7.7 MG/DL (8.5-10.1); Osmolality,Calculated 324.5 MOS/KG (273-304)
[2020-02-19] MEDS: SODIUM CHLORIDE 0.9% 1,000 ML IV SCH ×2 (05:04→18:12)
[2020-02-19] MEDS: ALBUMIN 25% 25 GM in PREMIX 1 EACH IV SCH ×3 (05:08→20:06)
[2020-02-19 05:15] LABS: INR 1.4; PT Patient Result 14.6 SECS (9.8-11.9)
[2020-02-19 05:28] LABS: Band Neutrophils 2 % (0-10); Hypochromasia 1+; Lymphocytes 7 % (20-55); Microcytosis Slight; Ovalocytes Slight; Platelet Estimate Adequate; Segmented Neutrophils 88 % (50-85); Total Cells Counted 100
[2020-02-19] MEDS: PIPERACILLIN/TAZOBACTAM 3,375 MG in SODIUM CHLORIDE 0.9% 100 ML IV SCH ×3 (05:54→19:44)
[2020-02-19] MEDS ORDERED: SODIUM BICARBONATE 50 MEQ/50 ML VIAL IV ONE (06:23)
[2020-02-19] MEDS ORDERED: SODIUM POLYSTYRENE SULFATE 15 GM/60 ML BOTTLE RECTAL ONE (07:09)
[2020-02-19] MEDS: PANTOPRAZOLE 40 MG VIAL IV SCH ×2 (08:55→20:04)
[2020-02-19] MEDS: DEXAMETHASONE 4 MG/1 ML VIAL IV SCH (08:55)
[2020-02-19] MEDS: ASPIRIN CHEW 81 MG TABLET PO SCH (08:56)
[2020-02-19] MEDS: METOPROLOL TARTRATE 25 MG TABLET PO SCH ×2 (08:56→20:04)
[2020-02-19] MEDS: ATORVASTATIN 40 MG TABLET PO SCH (08:57)
[2020-02-19] MEDS: SODIUM BICARB INJ 100 MEQ in SODIUM CHLORIDE 0.45% 1,000 ML IV SCH ×2 (08:58→23:39)
[2020-02-19] MEDS: CALCIUM (CARBONATE) 600 MG TABLET PO SCH (08:59)
[2020-02-19 12:42] LABS: Hepatitis B Core IgM Quant 0.18 Index; Hepatitis B Surface Ag Quant < 0.10 Index; Hepatitis B Surface Ag Result Negative (Negative); Hepatitis C Virus Ab Quant 0.07 Index; Hepatitis C Virus Ab Result Negative (Negative)
[2020-02-19] MEDS: NOREPINEPHRINE 16 MG in SODIUM CHLORIDE 0.9% 234 ML IV PRN (18:24)
[2020-02-19] MEDS: risperiDONE 0.25 MG TABLET PO SCH (20:04)
[2020-02-19] MEDS: MIRTAZAPINE 30 MG TABLET PO SCH (20:04)
[2020-02-19] MEDS: SERTRALINE 100 MG TABLET PO SCH (20:05)
[2020-02-20] MEDS: INSULIN REGULAR 100 UNIT/ML SUBCUT SCH ×3 (00:19→14:10)
[2020-02-20] MEDS: NOREPINEPHRINE 16 MG in SODIUM CHLORIDE 0.9% 234 ML IV PRN ×2 (01:36→09:31)
[2020-02-20] MEDS: PHENYLEPHRINE DRIP 40 MG/250 ML PREMIX IV PRN ×3 (02:30→09:32)
[2020-02-20 05:01] LABS: Calcium 7.6 MG/DL (8.5-10.1); Osmolality,Calculated 317.5 MOS/KG (273-304)
[2020-02-20 05:08] LABS: ABG Base Excess -6.9 MMOL/L (-2.5-2.5); ABG HCO3 22.9 MMOL/L (20-26); ABG Oxygen Saturation 91.8 % (95-100); ABG PO2 77.3 MM HG (80-95); ABG TCO2 25.1 MMOL/L (23-27)
[2020-02-20] MEDS: PIPERACILLIN/TAZOBACTAM 3,375 MG in SODIUM CHLORIDE 0.9% 100 ML IV SCH ×2 (05:10→14:11)
[2020-02-20] MEDS: ALBUMIN 25% 25 GM in PREMIX 1 EACH IV SCH (05:11)
[2020-02-20 05:21] LABS: Basophils % 0.1 % (0.0-0.8); Hematocrit 28.1 VOL% (42.0-52.0); Hemoglobin 8.2 GM/DL (14.0-18.0); Immature Granulocytes Absolute 0.26 #; Lymphocytes # 0.9 10*3/uL (1.4-4.0); Lymphocytes % 3.7 % (21.2-54.2); Mean Corpuscular HGB Conc 29.2 GM/DL (32-36); Mean Corpuscular Volume 94.9 FL (87-102); Mean Platelet Volume 12.1 FL (9.6-12.0); Monocytes % 4.7 % (1.7-12.7); NRBC # 0.02 10*3/uL; Neutrophils % 90.5 % (38.7-73.9); Platelet Count 114 T/CUMM (130-400); Red Blood Count 2.96 MC/CUMM (3.8-5.5); Red Cell Distribution Width 16.3 % (9.3-17.3); White Blood Count 25.1 T/CUMM (4-12)
[2020-02-20 05:21] LABS: ABG PCO2 73.3 MM HG (35-48); ABG PH 7.112 (7.35-7.45)
[2020-02-20 05:41] LABS: Band Neutrophils 3 % (0-10); Hypochromasia 1+; Lymphocytes 1 % (20-55); Platelet Estimate Decreased; Segmented Neutrophils 90 % (50-85); Total Cells Counted 100
[2020-02-20 05:42] LABS: Microcytosis Slight
[2020-02-20] MEDS: SODIUM BICARB INJ 100 MEQ in SODIUM CHLORIDE 0.45% 1,000 ML IV SCH ×2 (07:00→14:11)
[2020-02-20] MEDS: ASPIRIN CHEW 81 MG TABLET PO SCH (08:26)
[2020-02-20] MEDS: ATORVASTATIN 40 MG TABLET PO SCH (08:26)
[2020-02-20] MEDS: DEXAMETHASONE 4 MG/1 ML VIAL IV SCH (08:26)
[2020-02-20] MEDS: METOPROLOL TARTRATE 25 MG TABLET PO SCH (08:26)
[2020-02-20] MEDS: CALCIUM (CARBONATE) 600 MG TABLET PO SCH (08:27)
[2020-02-20] MEDS: PANTOPRAZOLE 40 MG VIAL IV SCH (08:30)
[2020-02-20] MEDS ORDERED: PHENYLEPHRINE INJ 160 MG in SODIUM CHLORIDE 0.9% 234 ML IV PRN (09:36)
[2020-02-20] MEDS ORDERED: SODIUM BICARBONATE 50 MEQ/50 ML VIAL IV ONE (12:15)
[2020-02-20 13:02] LABS: Calcium 7.3 MG/DL (8.5-10.1); Osmolality,Calculated 323.4 MOS/KG (273-304)
== END 2020-02-20 12:45 | disposition expired | DRG 207 ==
LOC: N.EDINP 13:01 → N.ED 13:01 → N.2E 16:44 → SUATTDRO 02-09 13:27 → N.CC 02-10 08:04
PROVIDERS: ADMIT Internal Medicine; ATTEND Internal Medicine